=== PATIENT | female | born 1965 | race African-American/Black ===

== ENCOUNTER 2024-07-17 01:24 | Inpatient (IN) | payer OTHER, MEDICAID ==
[~2024-07-17] VITALS: Ht 165.1 cm; Wt 71.2 kg
[2024-07-17 01:35] VITALS: O2SAT 99
[2024-07-17] MEDS ORDERED: MORPHINE SULFATE 4 MG/ML INJ (FOR IV/IM USE) IV ONE (02:00)
[2024-07-17 02:32] LABS: BASOPHILS % 0.5 % (0.0-2.0); EOSINOPHILS % 1.2 % (0.0-5.0); HEMATOCRIT. 37.8 % (36.0-48.0); HEMOGLOBIN. 12.6 g/dL (12.0-16.0); LYMPHOCYTES % 24.8 % (20.0-50.0); MEAN CORPUSCULAR HEMOGLOBIN 29.1 pg (28.0-32.0); MEAN CORPUSCULAR HGB CONC 33.2 g/dL (31.0-37.0); MEAN CORPUSCULAR VOLUME 87.5 fL (81.0-99.0); MEAN PLATELET VOLUME 10.5 fl (7.4-10.4); MONOCYTES % 4.4 % (2.0-8.0); NEUTROPHILS % 69.1 % (40.0-76.0); PLATELET 195 x1000/uL (130-400); RED BLOOD CELL COUNT 4.32 mill/uL (4.2-5.4); WHITE BLOOD COUNT 17.2 x1000/uL (4.5-11.0)
[2024-07-17 02:40] LABS: CHLORIDE 101 mEq/L (98-107); POTASSIUM 3.7 mEq/L (3.5-5.1); SODIUM 139 mEq/L (136-145)
[2024-07-17 02:41] LABS: CALCIUM 9.8 mg/dL (8.7-10.4); CARBON DIOXIDE 29 mEq/L (21-32)
[2024-07-17 02:46] LABS: GLUCOSE 104 mg/dL (70-105); UREA NITROGEN BLOOD 13 mg/dL (9-23)
[2024-07-17 02:48] LABS: ALANINE AMINOTRANSFERASE 24 IU/L (10-49); ALBUMIN 4.2 g/dL (3.2-4.8); ASPARTATE AMINOTRANSFERASE 19 IU/L (<34); BILIRUBIN DIRECT < 0.1 mg/dL (<=3.0); BILIRUBIN TOTAL 0.3 mg/dL (0.1-1.0); PROTEIN TOTAL 7.1 g/dL (6.0-8.3)
[2024-07-17 02:50] LABS: TROPONIN I HIGH SENSITIVITY < 4 ng/L (3.0-34)
[2024-07-17] MEDS ORDERED: AMLODIPINE 10MG TABLET PO ONE (04:15)
[2024-07-17] MEDS: AMLODIPINE 5MG TABLET PO NR (04:45)
[2024-07-17] MEDS: MORPHINE SULFATE 4 MG/ML INJ (FOR IV/IM USE) IV NR (05:16)
[2024-07-17] MEDS: LISINOPRIL 20MG TABLET PO ONE (05:19)
[2024-07-17] MEDS ORDERED: IOHEXOL-350 100 ML BOTTLE ONE (05:53)
[2024-07-17 08:07] LABS: CLARITY URINE CLOUDY (CLEAR); COLOR URINE YELLOW (YELLOW); GLUCOSE URINE NEGATIVE (NEGATIVE); KETONES URINE NEGATIVE (NEGATIVE); LEUKOCYTE ESTERASE URINE TRACE (NEGATIVE); NITRITE URINE NEGATIVE (NEGATIVE); OCCULT BLOOD URINE NEGATIVE (NEGATIVE); PROTEIN URINE TRACE (NEGATIVE); SPECIFIC GRAVITY URINE 1.043 (1.005-1.030)
[2024-07-17 08:34] LABS: BACTERIA URINE 1+; RBC URINE 0-2 /hpf (0-2); SQUAMOUS EPITHELIAL CELL URINE FEW /lpf (RARE/1+); YEAST URINE NONE SEEN
[2024-07-17 08:41] VITALS: BP 165/78; PULSE 63; RESP 18; TEMP 36.9; O2SAT 96
[2024-07-17 08:42] VITALS: BP 165/78; PULSE 63; RESP 18; TEMP 35.6
[2024-07-17] MEDS ORDERED: AMLO10TA80 PO (10:33)
[2024-07-17] MEDS ORDERED: ASPI-1497 PO (10:34)
== END 2024-07-17 12:06 | disposition left against medical advice (07) | DRG 392 ==
LOC: ER 01:24 → 8WST 03:55
PROVIDERS: ADMIT Internal Medicine; ATTEND Internal Medicine
DX: R10.84 Generalized abdominal pain (principal); M54.50 Low back pain, unspecified; R06.02 Shortness of breath; I10 Essential (primary) hypertension; Z53.29 Procedure and treatment not carried out because of patient's decision for other reasons
CPT/HCPCS: 36415; 71275; 74174; 80048; 80076; 81003; 83880; 84484; 85025; 93005; 99285; A4606; J2270; Q9967